=== PATIENT | female | born 1945 | race African-American/Black ===

== ENCOUNTER 2016-06-08 10:00 | Outpatient (RCR) ==
[2016-02-02 14:08] VITALS: BMI 26.6
== END 2016-06-19 ==
LOC: NEWBEG 10:00
PROVIDERS: ATTEND Psychiatry & Neurology Psychiatry
DX: F33.2 Major depressive disorder, recurrent severe without psychotic features (principal); F41.9 Anxiety disorder, unspecified; F43.10 Post-traumatic stress disorder, unspecified
CPT/HCPCS: 90853; 99213

== ENCOUNTER 2016-06-24 07:59 | Emergency (ER) ==
[2016-06-24 08:07] VITALS: BP 156/91; TEMP 100; BMI 28.0
--- NOTE | 2016-06-24 08:39 | DI ---
EXAM: Right shoulder; AP internal rotation, AP external rotation, scapular Y, and transaxillary view s HISTORY: Shoulder pain FINDINGS: Mild osteophyte formation is detected at the acromioclavicular joint space. The glenohume ral joint space is minimal marginal osteophyte formation. A left subclavian venous access catheter is noted. The bones are osteopenic. No localized soft tissue abnormalities are appreciated. No fr acture, osteolysis, or subluxation are detected. Asymmetric right apical pleural thickening is note d. OPINION: No acute fracture or subluxation. Mild acromioclavicular osteoarthritis and minimal glenohumeral osteoarthritis. Osteopenia. Left subclavian venous access catheter. Asymmetric right apical pleural thickening.
--- NOTE | 2016-06-24 08:54 | ED.PDOC ---
General ED Provider: Dr. ORALIA LUTZ Chief Complaint: Shoulder Pain/Injury Stated Complaint: right shoulder pain chronic Time Seen by Physician: 08:00 Mode of Arrival: Walk-In Information Source: Patient Exam Limitations: No limitations [facility] and Triage Documentation Reviewed and Agree: Yes Musculoskeletal Complaint Exam - Shoulder Pain Complaint/Exam Mechanism of Injury: Reports: No known trauma Onset/Duration: chronic Symptoms Are: Still present Timing: Constant Initial Severity: Moderate Current Severity: Moderate Location: Reports: Discrete Character: Reports: Aching, Throbbing, Spasmodic Alleviating: Reports: Rest Aggravating: Reports: Movement, Lifting, Flexion, Extension, Internal rotation, External rotation, Abduction Associated Signs and Symptoms: Denies: Swelling, Redness, Bruising, Fever, Weakness, Numbness, Tingling Related History: Reports: Similar episode Non-Orthopedic Risk Factors: Reports: None DVT Risk Factors: Reports: None Septic Arthritis Risk Factors: Reports: Extremes of age Related Surgical History: Reports: None Tenderness: Present: Proximal humerus, Rotator cuff muscles Limited Range of Motion: Present: Abduction, Adduction, Flexion, Extension, Internal rotation, External rotation, Rotator cuff muscles, Rotator cuff insertion Differential Diagnoses: Closed Fracture, Rotator Cuff Injury, Sprain, Strain Review of Systems - Review Of Systems Constitutional: Reports: No symptoms Eyes: Reports: No symptoms Ears, Nose, Mouth, Throat: Reports: No symptoms Respiratory: Reports: No symptoms Cardiac: Reports: No symptoms GI: Reports: No symptoms : Reports: No symptoms Musculoskeletal: Reports: Joint pain Skin: Reports: No symptoms Neurological: Reports: No symptoms Endocrine: Reports: No symptoms Hematologic/Lymphatic: Reports: No symptoms All Other Systems: Reviewed and Negative Past Medical History - Past Medical History Previously Healthy: Yes Endocrine: Reports: None Cardiovascular: Reports: CAD, SD, Hypertension, A-Fib Respiratory: Reports: None Hematological: Reports: None Gastrointestinal: Reports: None Genitourinary: Reports: None Neuro/Psych: Reports: Migraine, Anxiety, Depression Musculoskeletal: Reports: Joint Pain (LEFT HIP, PELVIS) Cancer: Reports: Lung Last Menstrual Period: unknown Other Pertinent Past Medical History: htn ca afib depr anx migr - Surgical History General Surgical History: Reports: Hysterectomy, , Appendectomy, Cholecystectomy, Orthopedic (KNEE REPLACEMENT SURGERY 11/12/13,), Back Surgery, Other (LUMPECTOMY), Unknown - Family History Family History: Reports: Unknown - Social History Smoking Status: Current some day smoker Hx Substance Use: No Alcohol Screening: None Physical Exam - Physical Exam Appearance: Well-appearing, No pain distress, Well-nourished Eyes: CELESTINA, EOMI, Conjunctiva clear ENT: Ears normal, Nose normal, Oropharynx normal Respiratory: Airway patent, Breath sounds clear, Breath sounds equal, Respirations nonlabored Cardiovascular: RRR, Pulses normal, No rub, No murmur GI/: Soft, Nontender, No masses, Bowel sounds normal, No Organomegaly Musculoskeletal: Limited ROM (right shoulder ) Skin: Warm, Dry, Normal color Neurological: Sensation intact, Motor intact, Reflexes intact, Cranial nerves intact, Alert, Oriented Psychiatric: Affect appropriate, Mood appropriate Interpretation - Radiology Interpretation Radiology Interpretation By: Radiologist Radiology Results: Positive (shoulderDJD) Critical Care Note - Critical Care Note Total Time (mins): 0 Course - Course Orders, Labs, Meds: Orders Category Date Time Status SHOULDER, RIGHT MIN 2V Stat RADS 06/24/16 08:04 Completed Vital Signs: Temp Pulse Resp BP Pulse Ox 06/24/16 08:00 100 F H 98 H 20 156/91 H 97 Departure - Departure Time of Disposition: 08:54 Disposition: HOME SELF-CARE Discharge Problem: Shoulder pain, Injury of shoulder region Rotator cuff arthropathy Qualifiers: Laterality: right Qualifier Code: (M12.811) Other specific arthropathies, not elsewhere classified, right shoulder Instructions: Rotator Cuff Tendinitis (ED) Condition: Good Pt referred to PMD for follow-up: No Additional Instructions: Please call your Family Physician as soon as possible to schedule a follow-up appointment. Prescriptions: Hydrocodone/Acetaminophen [M[place]omb 5-325 Tablet] 1 each PO Q6HR PRN #14 tablet PRN Reason: PAIN Allergies/Adverse Reactions: Allergies Latex, Natural Rubber Allergy (Mild, Verified 06/24/16 08:08) itching Penicillins Adverse Reaction (Verified 06/24/16 08:08) Penicillins Adverse Reaction (Uncoded 06/11/13 12:38) Home Medications: Ambulatory Orders Diltiazem HCl [Cardizem] 30 mg PO Q12HR 10/22/15 Mirtazapine [Remeron] 15 mg PO BEDTIME PRN 10/22/15 Tramadol HCl 50 mg PO BID 10/22/15 Prazosin HCl 1 mg PO BID 10/23/15 Magnesium Oxide [Magnesium] 500 mg PO BID #60 tab-cap 02/23/16 Aspirin 325 mg PO DAILY 7 Days 06/08/16 Hydrocodone/Acetaminophen [Mccomb 5-325 Tablet] 1 each PO Q6HR PRN #14 tablet 10/03
== END 2016-06-24 09:11 | disposition home or self-care (01) ==
LOC: ED 07:59
DX: M25.511 Pain in right shoulder (principal); G89.29 Other chronic pain; M12.811 Other specific arthropathies, not elsewhere classified, right shoulder; F17.210 Nicotine dependence, cigarettes, uncomplicated
CPT/HCPCS: 99282

== ENCOUNTER 2016-06-25 14:25 | Outpatient (CLI) ==
[2016-06-24 08:07] VITALS: BMI 28.0
[2016-06-25 14:49] LABS: BASOPHILS % (AUTO) 0.3 % (0.0-3.0); EOSINOPHILS % (AUTO) 0.1 % (0.0-7.0); IMMATURE GRANULOCYTE % (AUTO) 0.4 % (0.0-5.0); LYMPHOCYTES # (AUTO) 1.4 K/uL (0.60-3.4); LYMPHOCYTES % (AUTO) 10.3 (10.0-50.0); MEAN CORPUSCULAR HEMOGLOBIN 32.5 pg (27.0-31.0); MEAN CORPUSCULAR HGB CONC 35.9 (31.8-35.4); MEAN CORPUSCULAR VOLUME 90.5 fl (81.0-99.0); MONOCYTES # (AUTO) 1.3 K/uL (0.4-2.0); MONOCYTES % (AUTO) 9.5 (0-10); NEUTROPHILS % (AUTO) 79.4; PLATELET COUNT 175 10^3/uL (140-440); RED BLOOD COUNT 4.31 10^6/ul (4.20-5.40)
[2016-06-25 15:08] LABS: ALBUMIN 4.2 g/dL (3.4-5.0); ALBUMIN/GLOBULIN RATIO 0.93; ANION GAP 15.2; BILIRUBIN,TOTAL 1.17 mg/dL (0.00-1.20); BUN/CREATININE RATIO 12.09; CALCIUM 10.4 mg/dL (8.2-10.2); CREATININE 1.24 mg/dL (0.60-1.30); POTASSIUM 5.2 mmol/L (3.5-5.10); TOTAL PROTEIN 8.7 g/dL (5.8-8.1)
[2016-06-25 15:21] LABS: ERYTHROCYTE SEDIMENTATION RATE 19 mm/hr (0-20); ESR INTERNAL QC INTERNAL QC VALID
--- NOTE | 2016-06-25 15:23 | CT ---
Examination: Noncontrast CT examination of the chest with axial, sagittal, and coronal reconstructe d imaging. Reason for study: Thoracic aortic aneurysm without rupture. Comparison: 02/02/2016. FINDINGS: The aortic root is dilated to 4.7 cm. This is similar in appearance when compared to the prior exam . Similar appearing nodularity is seen in both lung bases. Similar appearing pleural thickening in the right apex with emphysematous changes seen with a biapic al predominance. Old granulomatous disease is seen throughout the lung parenchyma. Left-sided Port -A-Cath is seen with the the tip terminating at the atriocaval junction. There is atherosclerotic d isease of the aorta and distal arterial vasculature to include the coronary vessels. The thyroid is enlarged. There is a 9.6 cm intramuscular lipoma best seen on axial image number 39. 3.6 centimeter right hepatic hypodensity best seen on axial image number 16 and 1 cm hepatic hypoden sity best seen on axial image number 50 are not significantly changed [facility] and likely represent cysts. Impression: 1. Stable aortic root dilatation measuring 4.7 cm. 2. Right apical pleural thickening with biapical emphysematous disease. 3. Similar appearing nodularity in the lung bases. 4. 9.6 cm chest wall lipoma. 5. Hepatic hypodensities, likely cysts, are not significantly changed from the prior examination.
== END 2016-06-25 14:26 | disposition home or self-care (01) ==
LOC: RAD 14:25
PROVIDERS: ATTEND General Practice
DX: M25.511 Pain in right shoulder (principal); M75.51 Bursitis of right shoulder; C34.91 Malignant neoplasm of unspecified part of right bronchus or lung; I71.2 Thoracic aortic aneurysm, without rupture; M48.02 Spinal stenosis, cervical region; I49.9 Cardiac arrhythmia, unspecified
CPT/HCPCS: 36415; 80053; 85025; 85651; 93005; 93010

== ENCOUNTER 2016-06-26 12:37 | Outpatient (CLI) ==
--- NOTE | 2016-06-26 14:26 | CT ---
EXAM: CT right shoulder without contrast HISTORY: Right shoulder pain. COMPARISON: Radiograph 06/24/2016. Chest CT 06/25/2016. TECHNIQUE: Multiple axial images of the right shoulder were obtained without intravenous contrast. Images were reformatted in the sagittal and coronal planes. FINDINGS: Bone mineralization is decreased. There is no fracture or dislocation. Mild joint space narrowing and spurring seen at the acromioclavicular and glenohumeral joints. There is cystic montgomery ge of the greater tuberosity. No localized soft tissue abnormality identified. Emphysematous changes seen in the right lung with some areas of probable post-treatment fibrosis in the medial right apex, better seen on chest CT performed 1 day prior. Degenerative changes of the s pine are incompletely imaged. Thyroid gland is enlarged. There is a left-sided chest port which is incompletely imaged. Severe osteoarthritic changes of the right sternoclavicular joint noted. IMPRESSION: 1. No fracture or dislocation. 2. Mild acromioclavicular and glenohumeral osteoarthritis. 3. Subchondral cysts of the greater tuberosity suggest rotator cuff pathology. 4. Severe osteoarthritis of the right sternoclavicular joint.
== END 2016-06-26 12:38 | disposition home or self-care (01) ==
LOC: RAD 12:37
PROVIDERS: ATTEND General Practice
DX: M25.511 Pain in right shoulder (principal); M75.51 Bursitis of right shoulder

== ENCOUNTER 2016-09-05 10:41 | Outpatient (CLI) ==
--- NOTE | 2016-09-05 11:25 | CT ---
EXAM: CT of the chest without contrast History: Cough. History of lung cancer Comparison: Chest CT 06/25/2016 Technique: Multiplanar CT images through the thorax were obtained without the administration of IV contrast Findings: Heart remains borderline enlarged. Coronary calcifications. 4.7 cm ascending aortic aneu rysm again noted. Trace pericardial fluid. No axillary adenopathy. Left chest wall lipoma again no rasta. Evaluation for mediastinal and hilar lymph nodes is limited due to the lack of contrast admini stration but no bulky adenopathy is seen. Thyroid enlargement. Right paramediastinal fibrosis again noted. Emphysema. Calcified granulomas again seen within the t horax. There are new patchy infiltrates seen within the left upper lobe and new scattered left upper lobe micronodules. No pleural fluid and no pneumothorax. Within the visualized upper abdomen, hepatic cysts again seen. Right adrenal gland calcification ag ain noted. Visualized osseous structures unchanged with no acute osseous abnormalities identified. Degenerative changes of the spine. Impression: 1. New patchy left upper lobe lung infiltrates could be infectious/inflammatory or metastatic. The re are also a few new left upper lobe micronodules. Follow-up recommended. 2. Emphysema. 3. Borderline cardiomegaly and coronary artery disease. 4. No change in the 4.7 cm ascending aortic aneurysm. 5. Right paramediastinal fibrosis again noted. 6. Thyroid enlargement.
== END 2016-09-05 10:42 | disposition home or self-care (01) ==
LOC: RAD 10:41
PROVIDERS: ATTEND General Practice
DX: R05 Cough (principal); R06.2 Wheezing

== ENCOUNTER 2016-12-03 16:06 | Outpatient (CLI) ==
[2016-12-03 16:57] LABS: BASOPHILS % (AUTO) 0.5 % (0.0-3.0); EOSINOPHILS # (AUTO) 0.1 K/ul (0.0-0.7); EOSINOPHILS % (AUTO) 1.1 % (0.0-7.0); HEMATOCRIT 38.8 % (37.0-47.0); HEMOGLOBIN 13.7 g/dl (12.0-16.0); IMMATURE GRANULOCYTE % (AUTO) 0.2 % (0.0-5.0); LYMPHOCYTES # (AUTO) 1.9 K/uL (0.60-3.4); LYMPHOCYTES % (AUTO) 30.7 (10.0-50.0); MEAN CORPUSCULAR HEMOGLOBIN 30.9 pg (27.0-31.0); MEAN CORPUSCULAR HGB CONC 35.3 (31.8-35.4); MEAN CORPUSCULAR VOLUME 87.6 fl (81.0-99.0); MONOCYTES # (AUTO) 0.5 K/uL (0.4-2.0); NEUTROPHILS # (AUTO) 3.7 K/ul (2.0-6.9); NEUTROPHILS % (AUTO) 59.5; PLATELET COUNT 141 10^3/uL (140-440); RED BLOOD COUNT 4.43 10^6/ul (4.20-5.40); WHITE BLOOD COUNT 6.13 K/ul (4.6-10.2)
[2016-12-03 17:09] LABS: ALBUMIN 4.1 g/dL (3.4-5.0); ALBUMIN/GLOBULIN RATIO 1.08; ANION GAP 15.7; BILIRUBIN,TOTAL 0.67 mg/dL (0.00-1.20); BUN/CREATININE RATIO 13.91; CALCIUM 9.5 mg/dL (8.2-10.2); CREATININE 1.15 mg/dL (0.60-1.30); POTASSIUM 3.7 mmol/L (3.5-5.10); TOTAL PROTEIN 7.9 g/dL (5.8-8.1)
[2016-12-03 18:44] LABS: ERYTHROCYTE SEDIMENTATION RATE 10 mm/hr (0-20); ESR INTERNAL QC INTERNAL QC VALID
== END 2016-12-03 16:07 | disposition home or self-care (01) ==
LOC: LAB 16:06
PROVIDERS: ATTEND General Practice
DX: M25.551 Pain in right hip (principal); I48.91 Unspecified atrial fibrillation; B35.1 Tinea unguium; I10 Essential (primary) hypertension; I50.9 Heart failure, unspecified; C34.91 Malignant neoplasm of unspecified part of right bronchus or lung; K21.9 Gastro-esophageal reflux disease without esophagitis; N18.3 Chronic kidney disease, stage 3 (moderate); I73.9 Peripheral vascular disease, unspecified; I71.2 Thoracic aortic aneurysm, without rupture; G47.00 Insomnia, unspecified; Z79.899 Other long term (current) drug therapy
CPT/HCPCS: 36415; 80053; 85025; 85651

== ENCOUNTER 2016-12-04 08:07 | Outpatient (CLI) ==
--- NOTE | 2016-12-04 08:47 | DI ---
EXAM: Two views of the right hip. History: Right hip pain. Comparison: Pelvic radiograph 05/18/2015 Findings: Pelvic phleboliths again noted. No acute fracture or dislocation. Mild narrowing of the right hip joint. Degenerative changes seen within the lower lumbar spine. Chondrocalcinosis within the right hip joint. Impression: 1. No acute osseous abnormality. 2. Mild arthritis of the right hip joint. 3. Chondrocalcinosis
== END 2016-12-04 08:08 | disposition home or self-care (01) ==
LOC: RAD 08:07
PROVIDERS: ATTEND General Practice
DX: M25.551 Pain in right hip (principal)

== ENCOUNTER 2016-12-18 07:08 | Day surgery (SDC) ==
[2016-12-18] MEDS ORDERED: LIDOCAINE 1% 20 ML MDV ID ONE (07:49)
[2016-12-18] MEDS ORDERED: DIPRIVAN 20 ML VIAL IVP ONE (09:33)
[2016-12-18] MEDS ORDERED: LIDOCAINE HCL 2% LUER-JET ONE (09:33)
[2016-12-18] MEDS ORDERED: VERSED ONE (09:33)
[2016-12-18 11:41] VITALS: BP 147/87; TEMP 97.8
--- NOTE | 2016-12-19 10:30 | OP ---
INDICATIONS FOR PROCEDURE: 71-year-old female presents for colonoscopy exam. She has a history of adenomatous polyps with the last colonoscopy over three years ago. She also has been having some persistent epigastric discomfort. She tells me this discomfort is there throughout the day. It has been occurring a little over one month if not a little longer she states. MEDICATIONS: SEE ANESTHESIA NOTES. PROCEDURE: 1. ENDOSCOPY. 2. COLONOSCOPY, SNARE POLYPECTOMY REPORT: The risks, benefits, alternatives and limitations were discussed in detail with the patient. Informed consent was obtained. After adequate sedation was achieved, the video endoscope was introduced in the posterior pharynx and esophagus under direct vision and easily advanced down to the second portion of the duodenum. I then slowly withdrew. The duodenal mucosa appeared unremarkable as did the duodenal bulb. The antrum and body were relatively unremarkable. The scope was retroflexed to look at the cardia and fundus which was unremarkable. The scope was anteflexed and withdrawn back through the esophagus and this appeared unremarkable. The patient tolerated this procedure well with stable vital signs and pulse oximetry throughout. The patient's bed was turned. A digital rectal exam revealed good tone, no masses. The colonoscope was introduced in the rectum, was advanced under direct visual guidance to the cecum. The cecum was identified by the appendiceal orifice and IC valve. In the cecum there was a small 5 mm to 6 mm sessile polyp. I successfully removed this by snare technique. I then slowly withdrew the scope in a circumferential manner examining the mucosa quite carefully. I looked on the proximal and distal side of folds and flexures as best as possible. The remaining colon is unremarkable except for a second small 5 mm polyp in the distal sigmoid colon. This was removed by snare technique. No other abnormalities were noted including on retroflex view of areli anal canal. The prep was good. The withdrawal time was 8 minutes and 25 seconds. The patient tolerated the procedure well with stable vital signs and pulse oximetry throughout. IMPRESSION: 1. Normal upper endoscopy exam. 2. Two (2) colonic polyps removed RECOMMENDATIONS: 1. Await polyp pathology; if benign as expected I suggest a surveillance colonoscopy examination again in 5 years, sooner if signs or symptoms would indicate otherwise. 2. Regarding her persistent epigastric discomfort, I suggest a CT scan of the abdomen and pelvis with contrast. 3. To continue GI evaluation. 4. Will see her back in the office as needed if the CT is unremarkable and I have asked her to come see us if she continues to have discomfort. 5. She is to continue to followup with her primary care physician. CC: DR. EDWARD BOYD
== END 2016-12-18 11:33 | disposition home or self-care (01) ==
LOC: SURG 07:08
PROVIDERS: ATTEND Internal Medicine Gastroenterology
DX: Z09 Encounter for follow-up examination after completed treatment for conditions other than malignant neoplasm (principal); Z86.010 Personal history of colon polyps; D12.0 Benign neoplasm of cecum; D12.5 Benign neoplasm of sigmoid colon; R10.13 Epigastric pain

== ENCOUNTER 2016-12-19 08:31 | Outpatient (CLI) ==
--- NOTE | 2016-12-19 09:58 | CT ---
EXAM: CT of the abdomen pelvis with contrast History: Abdominal pain. Comparison: CT abdomen pelvis 02/02/2016 Technique: Multiplanar CT images through the abdomen pelvis were obtained following administration of IV contrast Findings: Subsegmental atelectasis seen at the lung bases. Degenerative changes of the spine. Grade 1 anterolisthesis of L4 on L5. Heart is enlarged. No discrete gallstones identified by CT. No change in the hepatic cysts. No abnormal enhancement o f the pancreas. Stable small calcified nodule within the right adrenal gland. Left adrenal gland i s unremarkable. Stable lobulated contour of the kidneys probably due to scarring. No enhancing everardo al masses. Small cyst again seen within the right kidney. No bowel obstruction. No bladder wall t hickening. Uterus is not seen. No free air and no ascites. No pathologically enlarged lymph nodes . Impression: No acute intra-abdominal or pelvic process.
== END 2016-12-19 08:32 | disposition home or self-care (01) ==
LOC: RAD 08:31
PROVIDERS: ATTEND Internal Medicine Gastroenterology
DX: R10.9 Unspecified abdominal pain (principal)

== ENCOUNTER 2017-01-30 12:41 | Outpatient (CLI) | payer OTHER ==
[2017-01-30 13:00] LABS: OCCULT BLOOD INTERNAL QC 1 INTERNAL QC VALID; OCCULT BLOOD INTERNAL QC 2 INTERNAL QC VALID; OCCULT BLOOD INTERNAL QC 3 INTERNAL QC VALID; OCCULT BLOOD SAMPLE 1 NEGATIVE (NEGATIVE); OCCULT BLOOD SAMPLE 2 NO SPECIMEN RECEIVED (NEGATIVE); OCCULT BLOOD SAMPLE 3 NO SPECIMEN RECEIVED (NEGATIVE)
== END 2017-01-30 12:42 | disposition home or self-care (01) ==
LOC: LAB 12:41
PROVIDERS: ATTEND General Practice
DX: R19.5 Other fecal abnormalities (principal); R10.9 Unspecified abdominal pain
CPT/HCPCS: 82272

== ENCOUNTER 2017-02-13 08:57 | Outpatient (RCR) ==
--- NOTE | 2017-02-15 09:03 | RS.OPPTEV2 ---
Date of Note: 02/13/17 Visit #: 1 Date of Evaluation: 02/13/17 Payer Source: MEDICARE Treatment Diagnosis: Neck pain History of Condition/Mechanism of Injury:: Patient reports neck pain for approximately 2 1/2 years. Reports her symptoms have progressively gotten worse. Current Subjective/complaints:: Reports neck pain on both sides, all the time. States the neck feels stiff. States she has pain with movement of the neck and dizziness with looking up. States she has constant tingling into the right UE. Reports She is right hand dominant and states she has limited use of the shoulder due to it being frozen. States her hand writing and communications executive are getting progressively worse. Reports she has occasional headaches. Reports nothing helps her pain. Neck pain wakes her up at night. Reports constant pain at bilateral shoulder blades. Medical History Medical History: Hypertension, Arthritis (hands, neck, back, and feet), Emphysema Smoking Status: Current every day smoker Diagnostic Testing/Imaging:: MRI from 04/17/16 in EMR. Shows multiple levels of central canal stenosis, cord flattening, foraminal stenosis. For full report , see EMR. Hx Home Medications: [place] 7.5 Patient's Goals: Her goal is to get relief of UE symptoms and neck pain. Pain Assessment - Pain Description Pain Location: neck Current Pain Intensity: 5/10 Worst Pain Intensity: 8/10 Functional Outcome Measure Neck Disability Index: 60 - G Codes & Severity Modifier G Codes & Modifier: Body position current CL. Body position goal CJ Source of G Code score: Neck disability index Observation - Observation Posture: Forward Head, Scapula Asymmetry (right scapula elevated), Increased Thoracic Kyphosis, Decreased Lumbar Lordosis, Scoliosis (left upper thoracic) Handedness: Right - ROM Comments: Cervical rotation to the left limited by 50%, right rotation demonstrates ~75% of normal ROM. Cervical extension -10 from neutral. Cervical flexion is WFL's. Patient reports tightness with ROM. Right shoulder AROM is limited to ~80-85 degrees flexion and scaption. Left UE AROM is WFL's. - Strength Comments: Left UE strength 4+/5 throughout. Right shoulder strength 4-/5, elbow 4+/5, wrist extensors 4/5. - Special Tests Foraminal Distraction: Negative Foraminal Compression: Negative Left, Positive Right Barrel Scraper Strength Left Hand Barrel Scraper Strength: 20 lbs. Right Hand Barrel Scraper Strength: 4-5 lbs. Dynamometer Testing Position: 2nd Position Palpation Comments:: Patient demonstrates moderate to marked increase in muscle tone along bilateral upper traps and cervical paraspinals. Middle traps demonstrate moderate increased muscle tone. patient reports tenderness with moderate pressure at the right upper traps, especially along the superior border of the scapula. Reports increased discomfort in the right UE with with central PA's of the lower cervical spine. Sensation - Sensation Comments: Patient reports less sensitivity to light touch throughout the entire right UE. - Treatment Modality: Electrical Stim Unattended Parameters/Method Applied: 4 small pads, one lead to each upper traps X 20 mins HVGS to 110 peak volts. - Heat/Cryotherapy Treatment: Hot Pack (with Estim to cervical region.) Interventions - Exercise/Activities/Manual Therapy Exercises/Activities: No exercises given today. Manual Therapy: NA - Charges Total Direct Minutes: 35 mins Total Treatment Time: 55 mins Procedures billed for this date of service:: GUERRERO Martin, Estim, HP Assessment Assessment: Patient presents to therapy with a diagnosis of cervical pain, degeneration of cervical intervertebral disc, spinal stenosis in cervical region. She reports constant bilateral neck and upper traps pain, with constant right UE symptoms. She exhibits weakness of the right UE, including her communications executive. She shows potential to benefit from modalities such as Estim to reduce muscle tone, and stretching and postural exercises to reduce her symptoms and improve her postural awareness. Patient Education: Education of diagnosis, Education of Plan of Care Rehab Potential: Good Short Term Goals Goal #1: Muscle tone in bilateral upper traps decreased to min-moderate. Goal to be met by: 02/28/17 Goal #2: Right UE symptoms localized to the right shoulder/neck. Goal to be met by: 02/28/17 Goal #3: Pt to demonstrate improved postural awareness. Goal to be met by: 02/28/17 Scrap Kettle Tender Goals Goal #1: Pt knows HEP and continue ex's to maintain functional level at D/C. Goal to be met by: 03/26/17 Goal #2: Score on Neck Disability index improved to <39% impairment. Goal to be met by: 03/26/17 Goal #3: Patient to report headaches decreased to seldom. Goal to be met by: 03/26/17 Goal #4: Pt able to perform ADL's with minimal increase in neck pain. Goal to be met by: 03/26/17 Plan - Treatment to be Provided Procedures: Therapeutic Exercises, Therapeutic Activity, Patient Education Modalities: Electrical Stimulation, Ultrasound/Phonophoresis, Cryotherapy, Hot Packs, Mechanical Traction (cervical) - Treatment Plan Frequency: 2-3 X week (X) Duration: 6 weeks ORDER # VISITS AND/OR THROUGH DATE: 03/26/17 - Treatment Code (1) Neck pain Code(s): M54.2 - CERVICALGIA Comments: M54.2 (2) Posture abnormality Code(s): R29.3 - ABNORMAL POSTURE Comments: R29.3 (3) Cervical radiculopathy Code(s): M54.12 - RADICULOPATHY, CERVICAL REGION Comments: M54.12 (4) Degeneration of cervical intervertebral disc Code(s): M50.30 - OTHER CERVICAL DISC DEGENERATION, UNSP CERVICAL REGION Comments: M50.30 (5) Spinal stenosis of cervical region Code(s): M48.02 - SPINAL STENOSIS, CERVICAL REGION Comments: M48.02
== END 2017-02-16 ==
PROVIDERS: ATTEND Nurse Practitioner
DX: M50.30 Other cervical disc degeneration, unspecified cervical region (principal); M48.02 Spinal stenosis, cervical region

== ENCOUNTER 2017-03-21 11:03 | Outpatient (RCR) ==
[2016-09-05 10:48] VITALS: BMI 28.0
--- NOTE | 2017-03-22 07:55 | RS.OPPTDC ---
Date of Discharge: 03/21/17 Date of Evaluation: 02/13/17 Number of Visits: 10 Treatment Diagnosis: Neck pain Current Complaints/Gains: Patient states neck is much better. States she has headaches much less often. Does not describe the frequency, but less than at evaluation. States she feels her headaches are tension related. She agrees that she can continue her exercises at home. States she is to received another injection in her cervical spine. Pain Assessment - Pain Description Pain Location: neck Functional Outcome Measure Neck Disability Index: 36 - G Codes & Severity Modifier G Codes & Modifier: Body position D/C CJ. Body position goal CJ Source of G Code score: Neck disability index - Treatment Modality: Ultrasound Parameters/Method Applied: 1.5 w/cm2 X 10 mins to cervical paraspinals and upper traps, focus mostly on the right side. - Heat/Cryotherapy Treatment: Hot Pack (X 15 mins to cervical spine) Interventions - Exercise/Activities/Manual Therapy Exercises/Activities: [id number] Isometric cervical retraction. Isometric shoulder extension. Assisted stretching into lateral cervical flexion, levator scapula, and forward flexion. Scapular retraction and shoulder elevation. Reviewed HEP and gave a latex-free blue theraband to progress scapular retraction ex's. Manual Therapy: NA HOME EXERCISE PROGRAM: Cervical retraction, scapular retraction, and cervical lateral flexion stretch. Anterior chest stretch. Red, green, and blue tband for scap retraction. Wand for overhead flexion. - Charges Total Direct Minutes: 28 mins Total Treatment Time: 43 mins Procedures billed for this date of service:: HP, US, EX Assessment Assessment: Patient reports much improvement with neck pain. Also reports a decrease in the frequency of headache pain. Reports improvement on the Neck Disability Index from 60% impairment at the evaluation to 36% impairment at this visit. She reports improvement in areas of pain intensity,ability to perform personal care, work, concentrate,sleep, reading, and recreation. She demonstrates no further skilled therapy needs at this time and is independent in her HEP. Short Term Goals Goal #1: Muscle tone in bilateral upper traps decreased to min-moderate. Goal to be met by: 02/28/17 Progress towards Goal:: Partially Met Comments:: Patient has temporary reduction of tone w/ treatment. Goal #2: Right UE symptoms localized to the right shoulder/neck. Goal to be met by: 02/28/17 Progress towards Goal:: Met Goal #3: Pt to demonstrate improved postural awareness. Goal to be met by: 02/28/17 Progress towards Goal:: Met Alf Goals Goal #1: Pt knows HEP and continue ex's to maintain functional level at D/C. Goal to be met by: 03/26/17 Progress towards goal: Met Goal #2: Score on Neck Disability index improved to <39% impairment. Goal to be met by: 03/26/17 Progress towards goal: Met Goal #3: Patient to report headaches decreased to seldom. Goal to be met by: 03/26/17 Progress towards goal: Met Goal #4: Pt able to perform ADL's with minimal increase in neck pain. Goal to be met by: 03/26/17 Progress towards goal: Met Plan Reason for Discharge:: No Further Skilled Therapy Indicated
== END 2017-04-18 ==
PROVIDERS: ATTEND Nurse Practitioner
DX: M50.30 Other cervical disc degeneration, unspecified cervical region (principal); M48.02 Spinal stenosis, cervical region

== ENCOUNTER 2017-06-14 09:02 | Outpatient (CLI) ==
[2016-09-05 10:48] VITALS: BMI 28.0
== END 2017-06-14 09:03 | disposition home or self-care (01) ==
LOC: LAB 09:02
PROVIDERS: ATTEND General Practice
DX: I10 Essential (primary) hypertension (principal); I48.91 Unspecified atrial fibrillation; Z79.899 Other long term (current) drug therapy
CPT/HCPCS: 36415; 80053; 80061; 81001; 85025

== ENCOUNTER 2017-06-19 09:39 | Outpatient (CLI) | payer OTHER ==
[2016-09-05 10:48] VITALS: BMI 28.0
--- NOTE | 2017-06-19 10:43 | MAMMO ---
EXAM: Bilateral digital diagnostic mammogram (2-D and 3-D) History: Left breast palpable abnormality. Comparison: Bilateral mammogram 10/07/2015 Findings: MLO and CC views of bilateral breasts demonstrate heterogeneously dense breast parenchyma which can obscure small lesions. CAD was reviewed by the radiologist. Tomosynthesis was performed. Stable benign bilateral vascular and scattered calcifications. Biopsy clip again seen within the lef t breast. Stable scarring within the left breast. There are no dominant masses, no suspicious micro calcifications and no architectural distortions Impression: No mammographic abnormalities are identified to correlate with the left breast palpable event. Recommend further evaluation with left breast ultrasound. BIRADS 0
--- NOTE | 2017-06-19 10:49 | US ---
EXAM: Left breast ultrasound. History: Left breast palpable abnormality. Comparison: Bilateral mammogram 06/19/2017 Technique: Multiple sonographic images through the left breast were obtained. Color duplex Doppler was used to interrogate vascular flow. There is a large fatty lipoma in the region of concern at 3 o 'clock measuring 8 cm x 3.5 cm x 7.7 cm. There are no suspicious masses and no abnormal fluid collec tions. Impression: Benign left breast lipoma. Recommend return to routine screening mammography schedule. BIRADS 2
== END 2017-06-19 09:40 | disposition home or self-care (01) ==
LOC: RAD 09:39
PROVIDERS: ATTEND General Practice
DX: N63.21 Unspecified lump in the left breast, upper outer quadrant (principal)

== ENCOUNTER 2017-08-02 09:10 | Emergency (ER) ==
[2017-08-02 09:17] VITALS: BP 133/71; TEMP 98.1; BMI 26.0
--- NOTE | 2017-08-02 09:31 | ED.PDOC ---
General ED Provider: Dr. ORAILA LUZT Chief Complaint: Extremity Pain/Injury Stated Complaint: RIGHT ELBOW PAIN, RIGHT SHOULDER PAIN Time Seen by Physician: 09:12 (SEEN WITH NARDA NEGATIVE CHEST PAIN) Mode of Arrival: Walk-In Information Source: Patient Exam Limitations: No limitations [facility] Nursing and Triage Documentation Reviewed and Agree: Yes Reviewed sepsis parameters & appropriate labs ordered?: Yes (NO CHEST PAIN NO INJURY CHRONIC PAIN) System Inflammatory Response Syndrome: Not Applicable Sepsis Protocol: For patient's 13 years and over: Temp is 96.8 and below OR 101 and greater Pulse >90 BPM Resp >20/minute Acutely Altered Mental Status Are patient's symptoms suggestive of a new infection, such as: -Pneumonia -Skin, Soft Tissue -Endocarditis -UTI -Bone, Joint Infection -Implantable Device -Acute Abdominal Infection -Wound Infection -Meningitis -Blood Stream Catheter Infection -Unknown System Inflammatory Response Syndrome: Not Applicable Musculoskeletal Complaint Exam - Upper Extremity Complaint/Exam Location of Pain: Reports: Right, Shoulder, Elbow, Forearm Mechanism of Injury: Reports: No known trauma Onset/Duration: TODAY BUT HAS PAIN OFF AND ON Review of Systems - Review Of Systems Constitutional: Reports: No symptoms Eyes: Reports: No symptoms Ears, Nose, Mouth, Throat: Reports: No symptoms Respiratory: Reports: No symptoms Cardiac: Reports: No symptoms GI: Reports: No symptoms : Reports: No symptoms Musculoskeletal: Reports: Joint pain (ELBOW, SHOULDER , PAIN ) Skin: Reports: No symptoms Neurological: Reports: No symptoms Endocrine: Reports: No symptoms Hematologic/Lymphatic: Reports: No symptoms All Other Systems: Reviewed and Negative Past Medical History - Past Medical History Previously Healthy: Yes Endocrine: Reports: None Cardiovascular: Reports: CAD, NM, Hypertension, A-Fib Respiratory: Reports: None Hematological: Reports: None Gastrointestinal: Reports: None Genitourinary: Reports: None Neuro/Psych: Reports: Migraine, Anxiety, Depression Musculoskeletal: Reports: Joint Pain (LEFT HIP, PELVIS) Cancer: Reports: Lung Last Menstrual Period: hysterectomy Other Pertinent Past Medical History: htn ca afib depr anx migr - Surgical History General Surgical History: Reports: Hysterectomy, , Appendectomy, Cholecystectomy, Orthopedic (KNEE REPLACEMENT SURGERY 11/12/13,), Back Surgery, Other (LUMPECTOMY), Unknown - Family History Family History: Reports: Unknown - Social History Smoking Status: Current some day smoker Hx Substance Use: No Alcohol Screening: Occasionally Physical Exam - Physical Exam Appearance: Well-appearing, No pain distress, Well-nourished Eyes: CELESTINA, EOMI, Conjunctiva clear ENT: Ears normal, Nose normal, Oropharynx normal Respiratory: Airway patent, Breath sounds clear, Breath sounds equal, Respirations nonlabored Cardiovascular: Irregular rhythm GI/: Soft, Nontender, No masses, Bowel sounds normal, No Organomegaly Musculoskeletal: Normal strength, ROM intact, No edema, No calf tenderness Skin: Warm, Dry, Normal color Neurological: Sensation intact, Motor intact, Reflexes intact, Cranial nerves intact, Alert, Oriented Psychiatric: Affect appropriate, Mood appropriate Re-Evaluation - Re-Evaluation Time of Re-Evaluation: 11:00 (NARDA PRESENT DENIED CHEST PAIN FILMS DISCUSSED ) Status: Unchanged Vital Signs Stable: Yes Pain Level: 2 ARM ONLY Appearance: NAD Lungs: Clear Skin: Warm and Dry Neuro: Alert and Oriented X3 CV: RRR Critical Care Note - Critical Care Note Total Time (mins): 0 Course - Course Orders, Labs, Meds: Orders Category Date Time Status EKG-(ED ONLY) Stat CARDIO 08/02/17 10:[address] CERVICAL SPINE W/O CONTRAST Stat RADS 08/02/17 09:45 Completed ELBOW, RIGHT MIN 3 VIEWS Stat RADS 08/02/17 09:29 Completed FOREARM, RIGHT 2 VIEWS Stat RADS 08/02/17 09:29 Completed SHOULDER, RIGHT MIN 2V Stat RADS 08/02/17 09:46 Completed Vital Signs: Temp Pulse Resp BP Pulse Ox 08/02/17 09:11 98.1 F 67 16 133/71 96 Departure - Departure Time of Disposition: 11:30 Disposition: HOME SELF-CARE Discharge Problem: Elbow pain, right Instructions: Elbow Sprain (ED), Arthralgia (ED) Condition: Good Pt referred to PMD for follow-up: Yes IPMP verified?: No Additional Instructions: Please call your Family Physician as soon as possible to schedule a follow-up appointment. Prescriptions: Hydrocodone/Acetaminophen [[place] 5-325 Tablet] 1 each PO Q6HR PRN #10 tablet PRN Reason: PAIN Allergies/Adverse Reactions: Allergies Latex, Natural Rubber Allergy (Mild, Verified 08/02/17 09:19) itching wool Allergy (Mild, Verified 08/02/17 09:19) itching Penicillins Adverse Reaction (Verified 08/02/17 09:19) Home Medications: Ambulatory Orders Mirtazapine [Remeron] 15 mg PO BEDTIME PRN 10/22/15 Melatonin 5 mg PO BEDTIME 06/14/17 Lidocaine 5 gm TP QID #708 g 07/22/17 Hydrocodone/Acetaminophen [[place] 5-325 Tablet] 1 each PO Q6HR PRN #10 tablet Disposition Discussed With: Patient
--- NOTE | 2017-08-02 10:38 | DI ---
Exam: Right shoulder three-view History: Shoulder pain Findings / impression: Mild osteoarthritic change of the acromioclavicular and glenohumeral joint. No acute bony or articular abnormality.
--- NOTE | 2017-08-02 10:47 | DI ---
EXAM: Two views of the right forearm. History: Right forearm pain. Findings: No acute fracture or dislocation. No abnormal calcifications or radiopaque foreign bodies . Joint spaces are relatively preserved. Impression: No acute osseous abnormality.
--- NOTE | 2017-08-02 10:48 | DI ---
EXAM: LEFT ELBOW HISTORY: Elbow pain FINDINGS: Left elbow three-view. Bone and joint structures appear normal. There is no joint disloc ation or effusion. No fracture is identified. Bone density and soft tissues are within normal limit s. IMPRESSION: Findings within normal limits.
--- NOTE | 2017-08-02 10:56 | CT ---
CT cervical spine without contrast HISTORY: Radicular neck pain on the right TECHNIQUE: CT of the cervical spine with multiplanar reformations. FINDINGS: Cervical spine shows preservation of vertebral body height. Posterior listhesis of C4 ashish suring about 2 mm. Normal alignment otherwise. Multilevel bone on bone disc space narrowing and fac et arthropathy. No fracture lines or suspicious bony lesions. Right apical consolidative pleural par enchymal scarring and bronchiectasis. There is probably asymmetric enlargement the right thyroid lobe . Ectatic enlargement of the right brachial cephalic artery measuring 2.1 cm diameter. Carotid arter y calcifications are present. C2-C3: No central canal stenosis. Minor disc bulge. Facet enlargement is present with mild bilater al foraminal narrowing. C3-C4: Posterior disc osteophyte with mild sac indentation. There is ankylosis of the right aspect of the lateral elements. Facet changes on the left. Mild right and left foraminal narrowing. C4-C5: Posterior disc osteophyte with moderate sac indentation. Facet and endplate changes with mod erate right and severe left foraminal narrowing. C5-C6: Posterior disc osteophyte with mild sac indentation. Facet enlargement with moderate bilater al foraminal stenosis. C6-C7: Posterior disc osteophyte with mild sac indentation. Facet and endplate changes with mild - moderate bilateral foraminal narrowing. C7-T1: Posterior disc osteophyte with minimal sac indentation. Facet and endplate changes with carlo re right and no left foraminal narrowing. Impression: 1. No acute abnormality of the cervical spine 2. Multilevel endplate and facet degenerative change with generally mild to moderate multilevel cent ral canal narrowing. Varying degrees of multilevel foraminal stenosis as described. 3. Incidental ectatic and tortuous right brachial cephalic artery also seen on chest CT 09/05/2016. 4. Right thyroid enlargement. Previously described.
== END 2017-08-02 11:35 | disposition home or self-care (01) ==
LOC: ED 09:10
DX: M25.521 Pain in right elbow (principal); M25.511 Pain in right shoulder; I25.10 Atherosclerotic heart disease of native coronary artery without angina pectoris; I10 Essential (primary) hypertension; I25.2 Old myocardial infarction; F17.210 Nicotine dependence, cigarettes, uncomplicated
CPT/HCPCS: 93005; 93010; 99283

== ENCOUNTER 2017-09-25 08:24 | Outpatient (CLI) ==
--- NOTE | 2017-09-25 09:43 | US ---
EXAM: ULTRASOUND CAROTID DUPLEX, BILATERAL HISTORY: Aneurysm of carotid artery FINDINGS: Chavis-scale ultrasound, color Doppler and spectral analysis was performed. Velocities are in meters per second. By chavis scale and color Doppler imaging, there were regions of heterogeneous plaque formation identif ied within the carotid bulbs and internal carotid arteries. These regions of plaque appeared to lionel in less than 50% vessel diameter. RIGHT: External carotid artery peak systolic velocity: 0.8 Common carotid artery peak systolic velocity/end diastolic velocity: 0.2/0.1 Internal carotid artery peak systolic velocity: 0.7 ICA/CCA peak systolic velocity ratio: 2.8 ICA end diastolic velocity: 0.3 LEFT: External carotid artery peak systolic velocity: 0.7 Common carotid artery peak systolic velocity/end diastolic velocity: 0.3/0.1 Internal carotid artery peak systolic velocity: 1.5 ICA/CCA peak systolic velocity ratio: 4.9 ICA end diastolic velocity: 0.6 The right and left vertebral arteries were antegrade. IMPRESSION: 1. By chavis scale and color Doppler imaging, there were regions of heterogeneous plaque formation maureen ntified within the carotid bulbs and internal carotid arteries. These regions of plaque appeared to remain less than 50% vessel diameter. 2. The left internal carotid artery peak systolic velocity of 1.5 meters per second falls within the moderate range of stenosis. Moderate indicates 50 - 69% vessel diameter. The left-sided ICA/CCA pe ak systolic velocity ratio of 4.9 is more consistent with severe stenosis. Severe indicates greater than or equal to 70%, but less than near occlusion. Of note, the exam was described as limited and t echnically difficult secondary to acoustic shadowing from calcific plaque. Consider correlation with CTA neck if indicated. 3. No convincing sonographic evidence of hemodynamically significant stenosis of the right internal carotid artery or carotid bulb. 4. Both vertebral arteries were antegrade. 5. Incidental note of thyroid nodules.
== END 2017-09-25 08:25 | disposition home or self-care (01) ==
LOC: RAD 08:24
PROVIDERS: ATTEND General Practice
DX: I48.91 Unspecified atrial fibrillation (principal); I72.0 Aneurysm of carotid artery; C34.91 Malignant neoplasm of unspecified part of right bronchus or lung; I50.9 Heart failure, unspecified; I10 Essential (primary) hypertension; N18.3 Chronic kidney disease, stage 3 (moderate); I71.2 Thoracic aortic aneurysm, without rupture; Z79.899 Other long term (current) drug therapy; G47.00 Insomnia, unspecified
CPT/HCPCS: 36415; 80053; 80061; 81001; 84443; 85025

== ENCOUNTER 2017-10-02 10:41 | Outpatient (CLI) | payer OTHER | END 2017-10-02 10:42 | disposition home or self-care (01) | LOC: FCC-LAB 10:41 | PROVIDERS: ATTEND General Practice | DX: R10.9 Unspecified abdominal pain (principal); K92.1 Melena; R19.5 Other fecal abnormalities | CPT/HCPCS: 36415; 82272; 85025; 85610 ==

== ENCOUNTER 2017-10-04 08:33 | Outpatient (CLI) ==
--- NOTE | 2017-10-04 09:40 | US ---
EXAM: Ultrasound arterial Doppler HISTORY: Aneurysm of carotid artery COMPARISON: None FINDINGS: Ultrasound arterial Doppler was performed in the right supraclavicular region in the area of clinical concern. Visualized portion of the right internal carotid and right subclavian arteries are patent. Right subclavian artery is tortuous. Diameter of the right subclavian artery is mildly prominent at up to 1.4 cm. IMPRESSION: Tortuous right subclavian artery corresponds to the area of clinical concern. Diameter o f the right subclavian artery is mildly prominent at 1.4 cm.
== END 2017-10-04 08:34 | disposition home or self-care (01) ==
LOC: RAD 08:33
PROVIDERS: ATTEND General Practice
DX: I72.0 Aneurysm of carotid artery (principal)
CPT/HCPCS: 93882

== ENCOUNTER 2018-03-08 00:49 | Outpatient (CLI) | payer OTHER | END 2018-03-08 00:50 | disposition home or self-care (01) | LOC: AMBL 00:49 | PROVIDERS: ATTEND Family Medicine | DX: R07.9 Chest pain, unspecified (principal); R53.1 Weakness; N93.9 Abnormal uterine and vaginal bleeding, unspecified; Z79.01 Long term (current) use of anticoagulants ==

== ENCOUNTER 2019-08-06 18:40 | Inpatient (IN) ==
--- NOTE | 2019-08-06 18:54 | ED.PDOC ---
General ED Provider: Dr. ONEIDA NUÑEZ MD Chief Complaint: Shortness of Air Stated Complaint: pt returned to the ER for admission to Dr Chavez for pneumonia of the ELEAZAR after having left the ER earlier to care for her . Time Seen by Physician: 18:53 Mode of Arrival: Ambulance Information Source: Patient and EMT Primary Care Provider: ILENE RAEMD Aaron Nursing and Triage Documentation Reviewed and Agree: Yes Does patient meet sepsis criteria?: No System Inflammatory Response Syndrome: Not Applicable Sepsis Protocol: For patient's 13 years and over: Temp is 96.8 and below OR 101 and greater Pulse >90 BPM Resp >20/minute Acutely Altered Mental Status Are patient's symptoms suggestive of a new infection, such as: -Pneumonia -Skin, Soft Tissue -Endocarditis -UTI -Bone, Joint Infection -Implantable Device -Acute Abdominal Infection -Wound Infection -Meningitis -Blood Stream Catheter Infection -Unknown Respiratory Complaint Exam Shortness of Air Complaint/Exam Character: Reports Dyspnea at rest Review of Systems Review Of Systems Constitutional: Denies Fever Respiratory: Reports Short of air All Other Systems: Other [facility] Social History (Updated 08/06/19 @ 20:03 by JIMMY TAYLOR) Smoking and tobacco status: Former smoker Tobacco: How many years used: 50 How long ago did patient quit smokin weeks ago Alcohol intake: unknown Details: Patient drinks occasionally. Substance use type: does not use Household members: spouse Marital status: M Lives independently: No MCFP: No Current occupational status: retired History of recent travel: No Sexually active: No Do you think of yourself as: straight/heterosexual Current gender identity: female Female Reproductive History Menstrual Hx Hysterectomy: Yes Hx Tubal Ligation: No Physical Exam Physical Exam Appearance: Reports Well-appearing Ill-appearing: None Pain Distress: None Respiratory: Reports Airway patent Neurological: Reports Alert Critical Care Note Critical Care Note Total Time (mins): 0 Course Course Hematology/Chemistry: 08/07/19 04:34 08/07/19 04:34 Orders, Labs, Meds: Orders Category Date Time Status NEBULIZER TREATMENT Routine CARDIO 08/06/19 18:59 Active OXYGEN Routine CARDIO 08/06/19 18:57 Active ACTIVITY .Complete BR CARE 08/06/19 18:57 Active INTAKE & OUTPUT Q8HR CARE 08/06/19 18:57 Active TELEMETRY MONITORING TELE CARE 08/06/19 19:08 Active VITAL SIGNS Q8HR CARE 08/06/19 18:57 Completed CBC W/ AUTO DIFF DAILY@0600 LAB 08/07/19 04:34 Completed CBC W/ AUTO DIFF DAILY@0600 LAB 08/08/19 06:00 Ordered COMPREHENSIVE METABOLIC PANEL DAILY@0600 LAB 08/07/19 04:34 Completed COMPREHENSIVE METABOLIC PANEL DAILY@0600 LAB 08/08/19 06:00 Ordered Ipratropium/Albuterol Neb [Duoneb] MEDS 08/07/19 00:00 Active 3 ml NEB RTQ6H RESUSCITATION STATUS Routine OTHERS 08/06/19 18:57 Ordered Medications Generic Name Dose Route Start Last Admin Trade Name Freq PRN Reason Stop Dose Admin Hydrocodone Bitart/Acetaminophen 0.5 tab 08/06/19 21:13 08/07/19 01:49 [place] 10-325 PO 0.5 tab Q12H PRN Administration Pain Albuterol Sulfate 2 puff 08/06/19 21:00 Proair Hfa IH Q4-6H PRN Wheezing Albuterol/Ipratropium 3 ml 08/07/19 00:00 08/07/19 05:08 Duoneb NEB 3 ml RTQ6H DEYSI Administration Apixaban 5 mg 08/06/19 21:00 08/06/19 22:00 Eliquis PO 5 mg BID DEYSI Administration Atorvastatin Calcium 40 mg 08/07/19 17:00 Lipitor PO DAILY@1700 DEYSI Diltiazem HCl 30 mg 08/06/19 21:00 08/06/19 21:57 Cardizem PO 30 mg TID DEYSI Administration Doxycycline Hyclate 100 mg/ 100 mls @ 50 mls/hr 08/06/19 23:00 08/06/19 23:19 Sodium Chloride IV 08/09/19 22:59 50 mls/hr Q12HR DEYSI Administration Multivitamins/Minerals 10 ml/ 1,020 mls @ 83 mls/hr 08/06/19 21:30 08/06/19 23:10 Potassium Chloride 20 meq/ IV 83 mls/hr Dextrose/Lactated Ringer's .[id number] DEYSI Administration Non-Formulary Medication 2 puff 08/07/19 09:00 Tiotropium-Olodaterol [Stiolto Respimat] IH DAILY DEYSI Pantoprazole Sodium 40 mg 08/07/19 06:30 08/07/19 06:20 Protonix PO 40 mg DAILY@0630 DEYSI Administration Tizanidine HCl 4 mg 08/06/19 21:42 08/07/19 02:07 Zanaflex PO 4 mg TID PRN Administration MUSCLE SPASMS Trazodone HCl 25 mg 08/06/19 21:00 08/06/19 21:58 Desyrel PO 25 mg BEDTIME DEYSI Administration Discontinued Medications Generic Name Dose Route Start Last Admin Trade Name Freq PRN Reason Stop Dose Admin Hydrocodone Bitart/Acetaminophen 1 tab 08/06/19 21:00 [place] 10-325 PO Q12H PRN Pain Vital Signs: Temp Pulse Resp BP Pulse Ox 08/06/19 18:42 98.3 F 86 16 130/90 94 L Discharge Plan Discharge Patient Disposition: PLACED OBSERVATION Discharge Problem: Pneumonia ED Provider: ONEIDA NUÑEZ Condition: Stable Discharge Date/Time: 08/06/19 19:35
[2019-08-06] MEDS ORDERED: TYLENOL PO PRN (18:57)
[2019-08-06] MEDS ORDERED: SODIUM CHLORIDE 1,000 ML IV SCH (19:00)
[2019-08-06 20:01] VITALS: BMI 18.9
[2019-08-06] MEDS ORDERED: LEVAQUIN 750 MG/150 ML D5W 750 MG/150 ML BAG IV SCH (21:00)
[2019-08-06] MEDS ORDERED: NORCO 10-325 PO PRN ×2 (21:00→21:13)
[2019-08-06] MEDS ORDERED: DESYREL PO SCH (21:00)
[2019-08-06] MEDS ORDERED: PROAIR HFA (SINGLE PATIENT USE) IH PRN (21:00)
[2019-08-06] MEDS ORDERED: ZANAFLEX PO PRN (21:42)
[2019-08-06] MEDS: CARDIZEM PO SCH (21:57)
[2019-08-06] MEDS: ELIQUIS PO SCH (22:00)
[2019-08-06] MEDS ORDERED: INFUVITE ADULT IV ONE (22:05)
[2019-08-06] MEDS ORDERED: POTASSIUM CHLORIDE 20 MEQ VIAL- ADDITIVE ONLY IV ONE (22:05)
[2019-08-06] MEDS: [UNRECOGNIZED DRUG - OTHER] IV SCH (23:10)
[2019-08-06] MEDS: ADDITIVE ONLY IV SCH (23:10)
[2019-08-06] MEDS: INFUVITE ADULT IV SCH (23:10)
[2019-08-06] MEDS: POTASSIUM CHLORIDE IV SCH (23:10)
[2019-08-06] MEDS: DOXY-100 100 MG in SODIUM CHLORIDE 100 ML IV SCH (23:19)
[2019-08-06] MEDS: DUONEB NEB SCH (23:25)
[2019-08-07] MEDS: DUONEB NEB SCH ×4 (05:08→22:30)
[2019-08-07 05:13] LABS: HEMATOCRIT 27.6 % (37.0-47.0)
[2019-08-07] MEDS ORDERED: PROTONIX PO SCH (06:30)
[2019-08-07] MEDS ORDERED: NON-FORMULARY MEDICATION (Tiotropium-Olodaterol [Stiolto Respimat] 2 PUFF) IH SCH (09:00)
[2019-08-07] MEDS: DOXY-100 100 MG in SODIUM CHLORIDE 100 ML IV SCH ×2 (09:10→20:20)
[2019-08-07] MEDS ORDERED: NORCO 5-325 PO PRN (10:04)
[2019-08-07] MEDS ORDERED: PROAIR HFA (SINGLE PATIENT USE) IH PRN (10:30)
[2019-08-07] MEDS: CARDIZEM PO SCH ×4 (10:45→20:22)
[2019-08-07] MEDS: ELIQUIS PO SCH ×3 (10:45→20:23)
[2019-08-07] MEDS: ROCEPHIN 1 GM/50 ML D5W 1 GM/50 ML BAG IV SCH (10:45)
[2019-08-07] MEDS ORDERED: COLACE PO ONE (10:50)
[2019-08-07] MEDS: PREDNISOLONE ACETATE EACHEYE SCH ×3 (11:30→20:20)
[2019-08-07] MEDS: TOBRAMYCIN EACHEYE SCH ×3 (11:30→20:20)
[2019-08-07] MEDS ORDERED: PREDNISOLONE ACETATE EACHEYE SCH (13:00)
[2019-08-07] MEDS ORDERED: TOBRAMYCIN EACHEYE SCH (13:00)
[2019-08-07] MEDS ORDERED: COLACE ONE (13:56)
[2019-08-07] MEDS: ANORO ELLIPTA 62.5-25 MCG INH IH SCH (14:01)
--- NOTE | 2019-08-07 15:01 | PN ---
DATE OF SERVICE: 08/06/2019 CHIEF COMPLAINT: Short of breath and cough. HISTORY OF PRESENT ILLNESS: Mrs. Katiana Aldana is a 74 year old patient of Dr. Chavez who presented through the emergency department on the date 08/06/2019 with complaints of progressive shortness of breath. Mrs. Aldana does have a significant past medical history of lung cancer. She does have persistent shortness of breath. This is been going on off and on for several months. She tells me that the shortness of breath has significantly got worse of the past several days to the point when she woke up yesterday morning she just could not hardly take a breath at all. She got scared. She did call a friend of hers who did bring her to the emergency department to be evaluated. She was seen in the emergency department and testing and workup was completed. She was diagnosed with pneumonia. She did have to go back home to take care of her and get him situated before she could be admitted to the hospital. It does look like she was given Levaquin around 2pm as well as Solu-Medrol and a DUO NEB then she went home to take care of her and then she was brought back by ambulance after she got her situated and when she came back in she knew that she could be admitted to the hospital under Dr. Chavez's admission. She arrived back to the emergency department around 6:51pm for admission of the pneumonia. She was then admitted to the hospital for evaluation of the pneumonia. She did have a CT of chest completed and I did review the CT of the chest. The CT of the chest was done on 08/06/2019 in the emergency department. It did not show any pulmonary emboli. It did show pulmonary artery hypertension suggested. It did show cardiomegaly at least a small pericardial effusion. It also showed arthrosclerotic disease, aneurysmal caliber of the ascending aorta at 4.2cm slightly greater than previously seen. It showed a stable right atypical apical pleuroparenchymal thickening and a newly mass-like consolidation in the left apex could represent fibrosis, atelectasis, pneumonia or neoplasia. Tiny left pleural effusion. Chest x-ray was also done 08/06/2019. It did show, it was compared to the 05/06/19 chest x-ray it should cardiomegaly and an aortic ectasia again noted. It showed a re-demonstration of consolidation in the medial right apex. There was a hazy density over the left apex which is more equally distributed since the previous exam possibly secondary to difference in patient positioning. This density is indeterminate and lungs are otherwise clear. This is why CT of the chest was completed. Her WBC was slight elevated on 08/06/19 at 11.68. Mrs. Aldana does have a history of lung cancer. I did talk to her because she was supposed to go and see a Oncologist in [place] on August 03. She tells me that she did go to the appointment on August 03 and he did want her to have a PET scan completed. This is supposed to be arranged per Dr. Church in [place], [place]. Once she gets that PET scan done she will go back to the [place] and discuss this PET results with Doctor in [place] and the decision about a bronchostomy will be decided. The patient again was admitted for treatment of the pneumonia. PAST MEDICAL HISTORY: Atrial fibrillation Bipolar Chronic arthritis Coronary artery disease Depression Hematoma to lower extremity History of gastroesophageal reflux disease Hypertension Hypothyroidism Malignant neoplasm of the lung Menopause History of MRSA bacteremia History of weight loss PAST SURGICAL HISTORY: History Oophorectomy Orthopedic surgery Total right knee replacement Appendectomy Hysterectomy FAMILY HISTORY: Mother diabetes, congestive heart failure and hypertension Father cancer SOCIAL HISTORY: She is a former smoker of 50 years, she did report quitting approximately three weeks ago. Alcohol intake she does report drinking occasionally. She denies any substance use. She did not admit to marijuana use she was advised to try marijuana to try to see if it would help increase her appetite and help her weight gain and see if it could assist with pain relief however she did not admit to using marijuana. MEDICATIONS: albuterol sulfate two puff inhalation every 4 hours as needed Eliquis 5mg PO twice a day Atorvastatin 40mg tablet daily Diltiazem 30mg tablet three times a day [place] 10mg one tablet PO every 12 hours PRN for pain Pantoprazole 40mg daily Stiolto Respimat 2 puff inhalation daily Tizanidine 4mg capsule three times a day as needed. Trazodone 25mg at bedtime ALLERGIES: Latex Wool Penicillin REVIEW OF SYSTEMS: CONSTITUTIONAL: No reports of fever, chills, night sweats. Persistent weight loss. Decrease in appetite. Her weight today was 120. I did look back at her office visit from 05/06/19 and her weight was 135. She has had a consistent drop in her weight over the last several months. HEENT: No reports of headache, nasal drainage or sore throat or any nasal congestion. Denies any blurred vision. CARDIOVASCULAR: No reports of chest pain or irregular rhythm. No orthopnea or peripheral edema. She does have a history of atrial fibrillation. She is on medications and rate control medications as well as blood thinner. She has chronic atrial fibrillation. She denies any chronic lower extremity swelling. RESPIRATORY: Denies any cough. No lung disease. She does have a history of lung cancer. She does complain of persistent shortness of breath and dyspnea. She does complain of some lung congestion and shortness of breath. GASTROINTESTINAL: No reports of abdominal pain. Denies constipation. No nausea or vomiting. No diarrhea or blood in the stool. GENITOURINARY: No complaints of dysuria, hematuria, nocturia or urinary incontinence. MUSCULOSKELETAL: She does have diffused arthralgias. Denies any dark redness or swelling. NEUROLOGIC: No reports of dizziness, any fatigue or neurological deficits. Denies any seizure like activities. Denies any Syncopal episodes. She does complain of just generalized weakness. ENDOCRINE: She does not have a history of diabetes mellitus. It does list a history of hypothyroidism. I did review her medication list and she is not taking medications for thyroid disease. I will further evaluate this. She denies any complaints of increased thirst, urination or heat or cold intolerance. INTEGUMENT: No reports of her avert rashes, lesions or skin changes. She did have a recent hematoma to the left lower extremity that has resolved. PSYCHIATRIC: No complaints of anxiety, depression or mood changes. PHYSICAL EXAMINATION: GENERAL: She is alert and oriented. She has been ill. VITAL SIGNS: Temperature 98.9, pulse 72, blood pressure 148/91, respiratory rate 17, O2 saturation 98%. This was on room air. Height 5'6, weight 120 pounds. HEENT: Head normocephalic, atraumatic. Pupils equal/reactive to light. Conjunctivae clear. Mucus membranes are moist. NECK: Supple. No lymphadenopathy or thyromegaly. No carotid bruit is auscultated on examination. CARDIOVASCULAR: S1, S2. Irregular. Peripheral pulses are palpable. There is no JVD. No peripheral edema. LUNGS: Clear, no respiratory distress.Diminished. She does have crackles to the left lung base. Breathing is stable at this time. ABDOMEN: Soft. Bowel sounds are positive. There is no tenderness on examination. NEUROLOGIC: Cranial nerves 2-12 grossly intact without any overt neurological deficit.She does answer all questions appropriately. There is no avert neurological deficit. SKIN: Warm and dry. No avert rashes or lesions noted on exam. LABS/DIAGNOSTIC TESTING: Per HPI. WBC on admission normal at 11.68, hgb 10.1, hct 29.3. Plt count 289. Chemistry panel completed on 08/06/2019 electrolytes were normal, LFT's were slightly elevated at 50, AST 58.6, ALT 59.7. Alkaline phosphatase 46.0, cardiac enzymes Troponin less than 0.012. In regards to imagining has already been discussed. CT of the chest was consistent with a newly developed mass-like consolidation in the left apex could represent fibrosis, atelectasis, pneumonia or neoplasia. ASSESSMENT: 1. Pneumonia suspected in the left apex. 2. Lung cancer 3. History of atrial fibrillation on rate controlled medication as well as chronic anti-coagulopathy medication 4. History of coronary heart disease 5. Gastroesophageal reflux disease 6. History of tobacco use, she did report that she quit 3 weeks ago PLAN: 1. Continue the NEB treatments as well as oxygen therapy 2. Labs will be continued to be monitored 3. She is on a regular diet at this time 4. Doxycycline has been ordered 5. Ceftriaxone has also been initiated 6. IV fluids are continuous 7. Will continue to follow along with this patient with pneumonia as well as labs and diagnostic testing has been ordered. Further orders and recommendations per Dr. Chavez. TIME SPENT: GREATER THAN 65 MINUTES MTDD
[2019-08-07] MEDS: LIPITOR PO SCH (16:35)
[2019-08-07] MEDS ORDERED: MILK OF MAGNESIA PO PRN (17:48)
[2019-08-07] MEDS: NORCO 5-325 PO PRN (18:14)
[2019-08-07] MEDS: INFUVITE ADULT 10 ML in DEXTROSE 5%-LR IV SOLUTION 1,000 ML IV SCH (19:07)
[2019-08-07] MEDS ORDERED: INFUVITE ADULT IV ONE (19:10)
[2019-08-07] MEDS: COLACE PO SCH (20:21)
[2019-08-07] MEDS: DESYREL PO SCH (20:22)
[2019-08-08] MEDS: ZANAFLEX PO PRN ×3 (02:16→20:20)
[2019-08-08] MEDS: NORCO 5-325 PO PRN ×3 (02:17→20:19)
[2019-08-08 05:05] LABS: HEMATOCRIT 26.7 % (37.0-47.0)
[2019-08-08] MEDS: DUONEB NEB SCH ×4 (05:11→23:01)
[2019-08-08] MEDS: PROTONIX PO SCH (06:16)
[2019-08-08] MEDS: INFUVITE ADULT 10 ML in DEXTROSE 5%-LR IV SOLUTION 1,000 ML IV SCH ×2 (07:12→10:55)
[2019-08-08] MEDS: [UNRECOGNIZED DRUG - OTHER] IV SCH (07:17)
[2019-08-08] MEDS: ADDITIVE ONLY IV SCH (07:17)
[2019-08-08] MEDS: POTASSIUM CHLORIDE IV SCH (07:17)
[2019-08-08] MEDS: INFUVITE ADULT IV SCH (07:17)
[2019-08-08] MEDS: CARDIZEM PO SCH ×3 (08:51→20:20)
[2019-08-08] MEDS: ANORO ELLIPTA 62.5-25 MCG INH IH SCH (08:51)
[2019-08-08] MEDS: K-DUR PO SCH (08:51)
[2019-08-08] MEDS: COLACE PO SCH ×2 (08:52→20:21)
[2019-08-08] MEDS: PREDNISOLONE ACETATE EACHEYE SCH ×4 (08:52→20:19)
[2019-08-08] MEDS: TOBRAMYCIN EACHEYE SCH ×4 (08:52→20:19)
[2019-08-08] MEDS: DOXY-100 100 MG in SODIUM CHLORIDE 100 ML IV SCH ×2 (08:52→20:22)
[2019-08-08] MEDS: NICODERM 21 MG TD SCH (08:52)
[2019-08-08] MEDS: ELIQUIS PO SCH ×2 (08:53→20:22)
[2019-08-08] MEDS ORDERED: INFUVITE ADULT IV ONE (09:03)
[2019-08-08] MEDS: ROCEPHIN 1 GM/50 ML D5W 1 GM/50 ML BAG IV SCH (10:54)
[2019-08-08] MEDS: LIPITOR PO SCH (16:02)
[2019-08-08] MEDS: DESYREL PO SCH (20:20)
[2019-08-09] MEDS ORDERED: INFUVITE ADULT IV ONE ×2 (00:54→15:55)
[2019-08-09] MEDS: INFUVITE ADULT 10 ML in DEXTROSE 5%-LR IV SOLUTION 1,000 ML IV SCH ×3 (00:59→16:01)
[2019-08-09] MEDS: NORCO 5-325 PO PRN ×3 (02:22→20:21)
[2019-08-09] MEDS: ZANAFLEX PO PRN ×3 (02:23→20:21)
[2019-08-09] MEDS: DUONEB NEB SCH ×4 (05:01→22:48)
[2019-08-09] MEDS: PROTONIX PO SCH (06:04)
[2019-08-09] MEDS: PREDNISOLONE ACETATE EACHEYE SCH ×4 (09:06→20:22)
[2019-08-09] MEDS: ANORO ELLIPTA 62.5-25 MCG INH IH SCH (09:06)
[2019-08-09] MEDS: TOBRAMYCIN EACHEYE SCH ×4 (09:06→20:22)
[2019-08-09] MEDS: DOXY-100 100 MG in SODIUM CHLORIDE 100 ML IV SCH ×2 (09:06→20:22)
[2019-08-09] MEDS: K-DUR PO SCH (09:07)
[2019-08-09] MEDS: COLACE PO SCH ×2 (09:07→20:21)
[2019-08-09] MEDS: CARDIZEM PO SCH ×3 (09:07→20:21)
[2019-08-09] MEDS: ELIQUIS PO SCH ×2 (09:07→20:22)
[2019-08-09] MEDS: NICODERM 21 MG TD SCH (09:15)
[2019-08-09] MEDS: ROCEPHIN 1 GM/50 ML D5W 1 GM/50 ML BAG IV SCH (11:10)
[2019-08-09] MEDS: LIPITOR PO SCH (16:02)
[2019-08-09] MEDS: DESYREL PO SCH (20:21)
[2019-08-10] MEDS: ZANAFLEX PO PRN ×2 (03:59→12:22)
[2019-08-10] MEDS: NORCO 5-325 PO PRN ×2 (03:59→12:20)
[2019-08-10] MEDS: DUONEB NEB SCH ×2 (05:06→11:17)
[2019-08-10] MEDS: INFUVITE ADULT 10 ML in DEXTROSE 5%-LR IV SOLUTION 1,000 ML IV SCH ×2 (05:50→06:51)
[2019-08-10] MEDS: PROTONIX PO SCH (06:10)
[2019-08-10] MEDS ORDERED: INFUVITE ADULT IV ONE (06:47)
[2019-08-10] MEDS: CARDIZEM PO SCH (08:29)
[2019-08-10] MEDS: K-DUR PO SCH (08:29)
[2019-08-10] MEDS: COLACE PO SCH (08:29)
[2019-08-10] MEDS: ROCEPHIN 1 GM/50 ML D5W 1 GM/50 ML BAG IV SCH (08:29)
[2019-08-10] MEDS: PREDNISOLONE ACETATE EACHEYE SCH ×2 (08:32→12:20)
[2019-08-10] MEDS: TOBRAMYCIN EACHEYE SCH ×2 (08:32→12:20)
[2019-08-10] MEDS: ANORO ELLIPTA 62.5-25 MCG INH IH SCH (08:32)
[2019-08-10] MEDS: ELIQUIS PO SCH (08:32)
[2019-08-10] MEDS: NICODERM 21 MG TD SCH (08:33)
--- NOTE | 2019-08-10 08:47 | CT ---
EXAM: CT chest without contrast HISTORY: Shortness of breath COMPARISON: 08/06/2019 TECHNIQUE: CT chest performed without intravenous contrast. Coronal and sagittal reformatted images obtained. FINDINGS: Thyroid appears enlarged with a left thyroid calcification. Heart mildly enlarged. Small to moderate pericardial effusion. Coronary calcifications. Main pulmonary artery measures 4 cm. A scending aorta measures 4.4 cm. Evaluation for lymphadenopathy limited without contrast. Visualize d portion upper abdomen demonstrates no acute abnormality. Bilateral renal calcifications likely vas cular. 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 No acute abnormal ities of the bones. Degenerative change in the spine. Central airway patent. No pneumothorax. Mil d to moderate emphysema. Stable right apical pleural parenchymal opacity with bronchiectasis, likely fibrosis. Small left pleural effusion with mild adjacent atelectasis. Mild right basilar atelectas is. Left upper lobe mass-like consolidation is similar to prior examination with occlusion of the le ft upper lobe bronchus and soft tissue seen in the left in the adjacent left prevascular region and l eft hilar region IMPRESSION: 1. Left upper lobe mass-like consolidation is similar to prior examination with occlusion of the lef t upper lobe bronchus and soft tissue seen in the left in the adjacent left prevascular region and le ft hilar region. Findings may be due to malignancy and/or pneumonia. Both entities may be present. 2. Small left pleural effusion with adjacent atelectasis. 3. Cardiomegaly. Small to moderate pericardial effusion. 4. Ascending aortic aneurysm measuring 4.4 cm. 5. 4 mm nodule left lung, indeterminate 6. Emphysema. 7. Enlarged main pulmonary, suggesting pulmonary hypertension. 8. Stable right apical pleural parenchymal opacity with bronchiectasis, likely fibrosis. 9. Atherosclerosis. Coronary calcifications. 10. Enlarged thyroid with calcification. Finding can be correlate with ultrasound.
--- NOTE | 2019-08-10 09:09 | PN ---
DATE OF SERVICE: 08/08/2019 SUBJECTIVE: The patient is alert and claims to be feeling better. She is not wearing her nasal oxygen and denies feeling short of breath. VITAL SIGNS: Temperature 98.4 orally, pulse 85, blood pressure 138/85, respiratory 18, oxygen saturation 94 at room air. LUNGS: Diminished breath sounds on the left upper posterior chest wall. No rales or wheezing HEART: Audible and regular. The patient is receiving Doxycycline 100mg IV piggy back Q 12 hours and Rocephin. She is also on Eliquis 5mg twice a day for the atrial fibrillation. She is continued on the Zanaflex and oral Ellipta and the eye drops. This patient is known to have densities at left suprahilar as well as right apical. She does have an appointment with a doctor in [place]. She was referred to [place] from [place] because of the lung opacity. The left patchy left upper lobe infiltrates had been since 2017. Inflammatory verus metastatic disease. 08/06/2019 CTA showed no PE, newly developed mass like consolidation in the left apex possibility of fibrosis, atelectasis, pneumonia or neoplasia. The medication was changed to every 8 hours total 5-325 [place] from every 12. MTDD
--- NOTE | 2019-08-10 09:48 | PN ---
DATE OF SERVICE: 08/09/2019 SUBJECTIVE: The patient is alert today not feeling well complaining of pain sharp in the anterior chest not present without any anorexia or diaphoresis as well as the back. The medication is not helping. The [place] is then changed to every 4-6 hours instead of every 8 and see if this would help. She did not mention of wanting to go home although the nurses told me that she indicated that she wants to go home earlier. We will obtain another chest CT in the morning and decide whether this patient can go home if she is better and stable. VITAL SIGNS: Blood pressure 123/72, pulse 99, respiratory rate 16, temperature 98.2, oxygen saturation 97 at room air. She is still receiving the same Doxycycline as well as Rocephin and the rest of her medications. LUNGS: Diminished breath sounds in the left upper posterior chest wall. There is no more air exchange on the right. There is no wheezing and no rales. HEART: Audible and irregular but not tachycardiac. CONDITION: Stable PLAN: 1. CT chest tomorrow. OLIVER
[2019-08-10] MEDS ORDERED: DOXY-100 100 MG in SODIUM CHLORIDE 100 ML IV SCH (11:30)
--- NOTE | 2019-08-10 14:06 | PN ---
DATE OF SERVICE: 08/07/2019 SUBJECTIVE: Today her vital signs are stable. Blood pressure 157/91, pulse 89, respiratory rate 18, temperature 98.3, O2 saturation 100%. She did not have her oxygen on when I went into the room. Her breathing was stable when I went into the room. LUNGS: Diminished. She did have crackles to her left lung base. HEART: Irregular. She does have chronic atrial fibrillation ABDOMEN: Soft and nontender. Bowel sounds were positive. She was eating breakfast. She says that her appetite was fairly well this morning. She has been started on IV antibiotics. Dr. Chavez did adjust those this morning. She was initially started on Doxycycline and he did add Ceftriaxone this morning. She is on IV fluids with multi vitamin. Home medications have been resumed. She does report that she is breathing better this morning. DUO NEBS are on order. She has been taking the DUO NEBS. She has been afebrile. I did look at her demographics and from admission has had not had any elevated temperatures. Since admission she has been afebrile. Again she does feel like she is breathing better since admission. We will continue to monitor this patient closely and follow culture on her as well as laboratories. Further orders and recommendations per Dr. Chavez. I did speak with Case Management and she was changed to an inpatient status. OLIVER
[2019-08-10 14:16] VITALS: BP 140/80; TEMP 98.3
--- NOTE | 2019-10-16 08:57 | DS ---
DATE OF SERVICE: 08/10/19 FINAL DIAGNOSES: 1. Left upper lobe pneumonitis plus maybe neoplasia or both. 2. Right apical mass or fibrosis. 3. History of coronary artery disease with stent. 4. History of GERD. 5. History of chronic tobacco use and abuse, persistent, claimed to have stopped some three weeks ago. 6. History of hypothyroidism. 7. History of hypertension. BRIEF HISTORY OF PRESENT ILLNESS/HOSPITAL COURSE: 74-year-old female, , who came to the emergency room initially on 08/06/19 at 10:58 a.m. She was discharged and came back 08/06/19 at 6:51 p.m. She was complaining of shortness of breath and was admitted from the emergency room because of probable pneumonia, left upper lobe. She did arrive by ambulance to the emergency room. The patient has significant comorbidities. The patient had diminished breath sounds with rales to the left lung base. No wheezing. Heart is audible and irregular. The patient has history of atrial fibrillation. Pedal pulses are present. The patient's initial CBC showed mild leukocytosis 11,680, moderate anemia, hemoglobin 10.1, hematocrit 29.3, normal platelet count. Liver function test are slightly elevated. AST and ALT 58.6 and 59.7 respectively. Alkaline phosphatase normal. CT in the ER showed right apical mass that is developing, either pneumonia or tumor. Blood cultures were negative after five days. [address] done on 08/10/19 at the time of discharge or before discharge from acute care to transitional was read as the following: Left upper lobe mass-like consolidation, similar to the prior examination of 08/06/19 with occlusion of the left upper lobe bronchus. Soft tissue seen in the left adjacent prevascular region and left hilar region. The findings may be due to malignancy and/or pneumonia. Both problems can be present. Ascending aortic aneurysm 4.4 cm, emphysema, enlarged main pulmonary artery suggesting pulmonary hypertension, stable right apical pleural parenchymal opacity with bronchiectasis likely fibrosis. The patient was given Doxycycline 100 mg intravenously q.12hr. This patient was continued on her home medications. The patient also was given Rocephin intravenously daily and the last dose of Rocephin is today, 08/10/19. The patient today is alert, feeling some better. Vital signs 3:22 p.m. on 08/10/19: Temperature 98.3, pulse 96, respiratory rate 16, oxygen saturation 98. Height 5'6", weight 117 lbs, 9.6 ozs. BMI 18.9. The patient is alert, oriented times four, cooperative, not in acute distress. Few rales at the left base with no wheezing. The heart is audible and irregular. The patient is discharged from acute care to transitional for continued antibiotic administration. PROGNOSIS: Guarded to poor. TIME SPENT: GREATER THAN 30 MINUTES MTDD
== END 2019-08-10 15:13 | disposition swing bed (61) | DRG 194 ==
LOC: ED 18:42 → MEDSURG B 18:42 → OBSVTOIN 19:07 → MEDSURG B 19:35
PROVIDERS: ADMIT General Practice; ATTEND General Practice
DX: R06.02 Shortness of breath; R63.4 Abnormal weight loss; J18.9 Pneumonia, unspecified organism; C34.90 Malignant neoplasm of unspecified part of unspecified bronchus or lung; D72.829 Elevated white blood cell count, unspecified; Z95.5 Presence of coronary angioplasty implant and graft; I48.20 Chronic atrial fibrillation, unspecified; J94.8 Other specified pleural conditions; I10 Essential (primary) hypertension; Z51.81 Encounter for therapeutic drug level monitoring; I27.20 Pulmonary hypertension, unspecified; E03.9 Hypothyroidism, unspecified; Z79.899 Other long term (current) drug therapy; J43.9 Emphysema, unspecified; R94.5 Abnormal results of liver function studies; J84.10 Pulmonary fibrosis, unspecified; D64.9 Anemia, unspecified; K21.9 Gastro-esophageal reflux disease without esophagitis; I25.10 Atherosclerotic heart disease of native coronary artery without angina pectoris; R63.0 Anorexia; Z87.891 Personal history of nicotine dependence; Z79.01 Long term (current) use of anticoagulants